=== PATIENT | female | born 1980 | race Caucasian/White ===

== ENCOUNTER 2025-06-21 16:15 | Inpatient (IN) | payer OTHER ==
[2025-06-21] MEDS ORDERED: ACETAMINOPHEN 325 MG TABLET (FP) PO PRN (17:17)
[2025-06-21] MEDS ORDERED: CEFEPIME HCL 2 GM VIAL (RESTRICTED TO ID) IVPB SCH (17:30)
[2025-06-21 17:51] LABS: COCAINE, UR NEGATIVE (NEGATIVE); PHENCYCLIDINE,URINE NEGATIVE (NEGATIVE)
[2025-06-21 17:52] LABS: METHADONE, UR NEGATIVE (NEGATIVE); OPIATES, URI NEGATIVE (NEGATIVE); URINE AMPHETAMINES NEGATIVE (NEGATIVE); URINE BENZODIAZEPINES POSITIVE (NEGATIVE)
[2025-06-21] MEDS ORDERED: THIAMINE HCL 200 MG/2 ML VIAL ONE (18:11)
[2025-06-21] MEDS ORDERED: CEFEPIME HCL/D5W 2 GM/50 ML BAG IVPB ONE (18:11)
[2025-06-21] MEDS ORDERED: FOLIC ACID 1 MG TABLET (FP) ONE (18:11)
[2025-06-21] MEDS: THIAMINE HCL 200 MG/2 ML VIAL IVPB SCH (18:44)
[2025-06-21] MEDS: FOLIC ACID 1 MG TABLET (FP) PO ONE (18:44)
[2025-06-21] MEDS: CEFEPIME 2 GM in DEXTROSE 5%-WATER 100 ML IVPB SCH (18:44)
[2025-06-21 18:53] LABS: URINE BARBITURATES NEGATIVE (NEGATIVE)
[2025-06-21] MEDS: LORazepam 2 MG/ML SDV VIAL IVPUSH PRN (21:57)
[2025-06-21 22:11] VITALS: BMI 17.2
[2025-06-22 07:47] LABS: MCHC 32.3 g/dl (32.2-35.5); MEAN CELL VOLUME 102.8 fl (79.4-94.8); MEAN PLT VOLUME 11.8 fl (9.4-12.3); RDW 14.5 % (12.2-17.1)
[2025-06-22 08:08] LABS: GLUCOSE,RANDOM 89.0 mg/dL (74-106)
[2025-06-22 08:09] LABS: TOT PROT 7.8 g/dl (6.4-8.2)
[2025-06-22 08:10] LABS: CO2 25.0 mmol/L (21-32)
[2025-06-22 08:12] LABS: ALK PHOS 126.0 U/L (40-150)
[2025-06-22 08:14] LABS: CREATININE 0.58 mg/dL (0.55-1.3); SGOT/AST 45.0 U/L (5-34); SGPT/ALT 19.0 U/L (0-55)
[2025-06-22] MEDS: NICOTINE 21 MG/24 HOURS TOPICAL PATCH TD SCH (09:18)
[2025-06-22 10:40] LABS: ARTERIAL BLD GAS O2 SATURATION 89.6 % (95-98); ARTERIAL BLOOD GAS BASE EXCESS 1.5 mmol/L (-2-2); ARTERIAL BLOOD GAS PCO2 44.50 mmHg (35-45); ARTERIAL BLOOD GAS PO2 57.2 mmHg (80-100)
[2025-06-22 10:44] LABS: ALLENS TEST POSITIVE
[2025-06-22] MEDS: NALOXONE HCL 0.4 MG/ML VIAL IVPUSH PRN (12:19)
[2025-06-22 14:02] LABS: COCAINE, UR NEGATIVE (NEGATIVE); OPIATES, URI NEGATIVE (NEGATIVE); PHENCYCLIDINE,URINE NEGATIVE (NEGATIVE); URINE AMPHETAMINES NEGATIVE (NEGATIVE)
[2025-06-22 14:03] LABS: METHADONE, UR POSITIVE (NEGATIVE); URINE BARBITURATES NEGATIVE (NEGATIVE); URINE BENZODIAZEPINES POSITIVE (NEGATIVE)
[2025-06-22] MEDS ORDERED: MAGNESIUM 2GM/50ML STERILE WATER IVPB IVPB ONE (15:00)
[2025-06-22] MEDS: ACETAMINOPHEN 1000 MG/100 ML BAG IVPB ONE (16:28)
[2025-06-22] MEDS ORDERED: [UNRECOGNIZED DRUG - OTHER] IVPB SCH (18:00)
[2025-06-22] MEDS ORDERED: VANCOMYCIN IVPB SCH (18:00)
[2025-06-22] MEDS: LORazepam 2 MG/ML SDV VIAL IVPUSH ONE (18:10)
[2025-06-22] MEDS: MAGNESIUM 2GM/50ML STERILE WATER IVPB IVPB ONE (18:14)
[2025-06-22] MEDS: LACTATED RINGERS SOLUTION 1,000 ML/1,000 ML INFUS.BAG IV STA ×2 (18:15→18:29)
[2025-06-22] MEDS: MEROPENEM 1 GM in DEXTROSE 5%-WATER 100 ML IVPB SCH (19:37)
[2025-06-22] MEDS: VANCOMYCIN/WATER FOR INJ (PEG) 1,000 MG/200 ML BAG IVPB SCH (19:37)
[2025-06-22 19:44] LABS: ABSOLUTE IMMATURE GRANULOCYTES 0.01 x10^3/uL (0.0-0.031); MEAN CELL VOLUME 106.8 fl (79.4-94.8)
[2025-06-22 19:46] LABS: BASOPHILS # 0.01 x10^3/uL (0.01-0.08); EOSINOPHIL % 5.8 % (0.7-5.8); EOSINOPHILS # 0.21 x10^3/uL (0.04-0.36); IMMATURE PLATELET FRACTION # 1.80 x10^3/uL; MCHC 31.9 g/dl (32.2-35.5); MEAN PLT VOLUME 11.6 fl (9.4-12.3); MONOCYTE # 0.28 x10^3/uL (0.24-0.86); MONOCYTE % 7.8 % (4.7-12.5); RDW 14.7 % (12.2-17.1)
[2025-06-22 19:56] LABS: GLUCOSE,RANDOM 71.0 mg/dL (74-106)
[2025-06-22 19:57] LABS: TOT PROT 6.8 g/dl (6.4-8.2)
[2025-06-22 19:58] LABS: CO2 25.0 mmol/L (21-32)
[2025-06-22 19:59] LABS: ALK PHOS 108.0 U/L (40-150)
[2025-06-22 20:02] LABS: CREATININE 0.72 mg/dL (0.55-1.3); SGOT/AST 43.0 U/L (5-34); SGPT/ALT 14.0 U/L (0-55)
[2025-06-22] MEDS: ACYCLOVIR INJECTION 500 MG in DEXTROSE 5%-WATER - 100 ML IVPB SCH (20:10)
[2025-06-22] MEDS: BICTEGRAV/EMTRICIT/TENOFOV (BIKTARVY) 50-200-25 MG TABLET PO SCH (20:54)
[2025-06-22] MEDS: THIAMINE HCL 200 MG/2 ML VIAL IVPB SCH (21:15)
[2025-06-23] MEDS ORDERED: ACETAMINOPHEN 1000 MG/100 ML BAG IVPB PRN (03:20)
[2025-06-23] MEDS: ACETAMINOPHEN 1000 MG/100 ML BAG IVPB PRN (03:54)
[2025-06-23] MEDS: HALOPERIDOL LACTATE 5 MG/ML IM ONE ×2 (06:49→06:56)
[2025-06-23] MEDS: SODIUM CHLORIDE 1,000 ML IV STA (08:23)
[2025-06-23 08:27] LABS: MCHC 32.1 g/dl (32.2-35.5); MEAN CELL VOLUME 104.7 fl (79.4-94.8); MEAN PLT VOLUME 12.4 fl (9.4-12.3); RDW 14.6 % (12.2-17.1)
[2025-06-23 09:54] LABS: GLUCOSE,RANDOM 67.0 mg/dL (74-106); TOT PROT 7.4 g/dl (6.4-8.2)
[2025-06-23 09:55] LABS: CO2 23.0 mmol/L (21-32)
[2025-06-23 09:57] LABS: ALK PHOS 110.0 U/L (40-150)
[2025-06-23 10:00] LABS: CREATININE 0.71 mg/dL (0.55-1.3); SGOT/AST 56.0 U/L (5-34); SGPT/ALT 15.0 U/L (0-55)
[2025-06-23] MEDS: ATOVAQUONE 750 MG/5 ML (UNIT-DOSE PACKAGING) PO SCH (10:51)
[2025-06-23] MEDS: LORazepam 2 MG/ML SDV VIAL IM ONE (11:31)
[2025-06-23] MEDS: DEXTROSE 5%-LACTATED RINGERS 1,000 ML IV SCH (12:43)
[2025-06-23 21:13] LABS: EPI CELLS 6 /uL (0-25.1); HYALINE CASTS 2 /uL (0-3.1); URINE APPEARANCE CLEAR; URINE BACTERIA 67 /uL (0-1359); URINE BILIRUBIN NEGATIVE (NEGATIVE); URINE COLOR YELLOW; URINE GLUCOSE (UA) NEGATIVE (NEGATIVE); URINE KETONE TRACE (NEGATIVE); URINE LEUK ESTERASE 1+ (NEGATIVE); URINE NITRITE NEGATIVE (NEGATIVE); URINE PROTEIN 1+ (NEGATIVE); URINE RBC 21 /uL (0-23.9); URINE UROBILINOGEN 0.2 mg/dL (0.2-1.0)
[2025-06-24 09:24] LABS: EPI CELLS 20 /uL (0-25.1); HYALINE CASTS 0 /uL (0-3.1); URINE APPEARANCE CLEAR; URINE BACTERIA 74 /uL (0-1359); URINE BILIRUBIN NEGATIVE (NEGATIVE); URINE COLOR YELLOW; URINE GLUCOSE (UA) NEGATIVE (NEGATIVE); URINE KETONE NEGATIVE (NEGATIVE); URINE LEUK ESTERASE 2+ (NEGATIVE); URINE NITRITE NEGATIVE (NEGATIVE); URINE PROTEIN TRACE (NEGATIVE); URINE RBC 23 /uL (0-23.9); URINE UROBILINOGEN 0.2 mg/dL (0.2-1.0); URINE WBC 106 /uL (0-25.8)
[2025-06-24 11:07] LABS: YEAST MODERATE (NEGATIVE)
[2025-06-24 12:56] LABS: MCHC 32.0 g/dl (32.2-35.5); MEAN CELL VOLUME 103.4 fl (79.4-94.8); MEAN PLT VOLUME 13.0 fl (9.4-12.3); RDW 14.4 % (12.2-17.1)
[2025-06-24 13:13] LABS: GLUCOSE,RANDOM 91.0 mg/dL (74-106)
[2025-06-24 13:14] LABS: TOT PROT 7.9 g/dl (6.4-8.2)
[2025-06-24 13:15] LABS: CO2 26.0 mmol/L (21-32)
[2025-06-24 13:17] LABS: ALK PHOS 139.0 U/L (40-150)
[2025-06-24 13:19] LABS: CREATININE 0.72 mg/dL (0.55-1.3); SGOT/AST 58.0 U/L (5-34); SGPT/ALT 19.0 U/L (0-55)
[2025-06-24] MEDS: MEROPENEM 1 GM in DEXTROSE 5%-WATER 100 ML IVPB SCH (21:18)
[2025-06-25] MEDS: MAGNESIUM 2GM/50ML STERILE WATER IVPB IVPB ONE ×2 (00:37→00:39)
[2025-06-25 08:02] LABS: MCHC 32.2 g/dl (32.2-35.5); MEAN CELL VOLUME 102.6 fl (79.4-94.8); MEAN PLT VOLUME 12.4 fl (9.4-12.3); RDW 14.2 % (12.2-17.1)
[2025-06-25 08:53] LABS: GLUCOSE,RANDOM 81.0 mg/dL (74-106); TOT PROT 6.7 g/dl (6.4-8.2)
[2025-06-25 08:54] LABS: CO2 25.0 mmol/L (21-32)
[2025-06-25 08:56] LABS: ALK PHOS 179.0 U/L (40-150)
[2025-06-25 08:57] LABS: LDH 158.0 U/L (84-246)
[2025-06-25 08:59] LABS: CREATININE 0.64 mg/dL (0.55-1.3); SGOT/AST 47.0 U/L (5-34); SGPT/ALT 16.0 U/L (0-55)
[2025-06-25 10:34] LABS: IRON SERUM 68.0 ug/dL (50-175)
[2025-06-25] MEDS: ALBUTEROL SO4 2.5/IPRATROPIUM 0.5 INH SOL 3 ML VIAL.NEB. NEB SCH (20:43)
[2025-06-26 08:24] LABS: MCHC 32.2 g/dl (32.2-35.5); MEAN CELL VOLUME 103.9 fl (79.4-94.8); MEAN PLT VOLUME 12.1 fl (9.4-12.3); RDW 14.5 % (12.2-17.1)
[2025-06-26 08:58] LABS: GLUCOSE,RANDOM 98.0 mg/dL (74-106); TOT PROT 7.2 g/dl (6.4-8.2)
[2025-06-26 08:59] LABS: CO2 20.0 mmol/L (21-32)
[2025-06-26 09:01] LABS: ALK PHOS 198.0 U/L (40-150)
[2025-06-26 09:03] LABS: SGOT/AST 49.0 U/L (5-34); SGPT/ALT 18.0 U/L (0-55)
[2025-06-26 09:04] LABS: CREATININE 0.61 mg/dL (0.55-1.3)
[2025-06-26] MEDS: THIAMINE HCL 200 MG/2 ML VIAL IVPB SCH (09:32)
[2025-06-26] MEDS: MAGNESIUM 2GM/50ML STERILE WATER IVPB IVPB ONE (11:49)
[2025-06-27 07:32] LABS: IMMATURE PLATELET FRACTION # 1.90 x10^3/uL; MCHC 32.3 g/dl (32.2-35.5); MEAN CELL VOLUME 102.8 fl (79.4-94.8); MEAN PLT VOLUME 12.1 fl (9.4-12.3); RDW 14.6 % (12.2-17.1)
[2025-06-27 08:08] LABS: GLUCOSE,RANDOM 89.0 mg/dL (74-106); TOT PROT 6.8 g/dl (6.4-8.2)
[2025-06-27 08:09] LABS: CO2 24.0 mmol/L (21-32)
[2025-06-27 08:11] LABS: ALK PHOS 261.0 U/L (40-150)
[2025-06-27 08:14] LABS: CREATININE 0.62 mg/dL (0.55-1.3); SGOT/AST 61.0 U/L (5-34); SGPT/ALT 22.0 U/L (0-55)
[2025-06-27] MEDS: FOLIC ACID 1 MG TABLET (FP) PO SCH (09:24)
[2025-06-27] MEDS: MULTIVITAMINS (DAILY MVI) TABLET (FP) PO SCH (09:24)
[2025-06-27] MEDS: DEXTROSE 5%-LACTATED RINGERS 1,000 ML IV SCH (09:28)
[2025-06-27] MEDS: MAGNESIUM SULF 50% (8.12 MEQ/2 ML-1 GM VIAL) IVPB ONE (10:13)
[2025-06-28] MEDS ORDERED: CLOBETASOL PROPIONATE 15 GM OINTMENT TP SCH (02:45)
[2025-06-28] MEDS: LORATADINE 10 MG TABLET PO ONE (03:06)
[2025-06-28 08:10] LABS: IMMATURE PLATELET FRACTION # 1.80 x10^3/uL; MCHC 31.9 g/dl (32.2-35.5); MEAN CELL VOLUME 103.2 fl (79.4-94.8); MEAN PLT VOLUME 13.2 fl (9.4-12.3); RDW 14.6 % (12.2-17.1)
[2025-06-28] MEDS: CLOBETASOL PROPIONATE 15 GM CREAM TP SCH (08:14)
[2025-06-28 08:26] LABS: GLUCOSE,RANDOM 99.0 mg/dL (74-106)
[2025-06-28 08:27] LABS: TOT PROT 7.2 g/dl (6.4-8.2)
[2025-06-28 08:28] LABS: CO2 25.0 mmol/L (21-32)
[2025-06-28 08:29] LABS: ALK PHOS 286.0 U/L (40-150)
[2025-06-28 08:32] LABS: SGOT/AST 61.0 U/L (5-34); SGPT/ALT 29.0 U/L (0-55)
[2025-06-28 08:33] LABS: CREATININE 0.56 mg/dL (0.55-1.3)
[2025-06-28] MEDS: MAGNESIUM 2GM/50ML STERILE WATER IVPB IVPB ONE (16:18)
[2025-06-28] MEDS: MEROPENEM 1 GM in DEXTROSE 5%-WATER 100 ML IVPB SCH (19:47)
[2025-06-28] MEDS: VANCOMYCIN 1,000 MG in DEXTROSE 5%-WATER - 250 ML IVPB SCH (19:48)
[2025-06-28] MEDS: HALOPERIDOL LACTATE 5 MG/ML IM ONE (19:48)
[2025-06-29] MEDS: LEVOTHYROXINE NA 25 MCG TABLET (FP) PO SCH (06:12)
[2025-06-29 08:14] LABS: MCHC 31.8 g/dl (32.2-35.5); MEAN CELL VOLUME 104.3 fl (79.4-94.8); MEAN PLT VOLUME 12.6 fl (9.4-12.3); RDW 14.9 % (12.2-17.1)
[2025-06-29 08:58] LABS: GLUCOSE,RANDOM 99.0 mg/dL (74-106); TOT PROT 7.9 g/dl (6.4-8.2)
[2025-06-29 08:59] LABS: CO2 20.0 mmol/L (21-32)
[2025-06-29 09:01] LABS: ALK PHOS 275.0 U/L (40-150)
[2025-06-29 09:04] LABS: CREATININE 0.52 mg/dL (0.55-1.3); SGOT/AST 62.0 U/L (5-34); SGPT/ALT 26.0 U/L (0-55)
[2025-06-29] MEDS: valACYclovir HCL 500 MG TABLET (FP) PO SCH (13:35)
[2025-06-29] MEDS: ONDANSETRON 4 MG/2 ML VIAL IVPUSH PRN (13:38)
[2025-06-29] MEDS: morphine CARPU-JECT 2 MG/1 ML DISP.SYRIN IVPUSH ONE (19:48)
[2025-06-29] MEDS: CARVEDILOL 3.125 MG TABLET (FP) PO SCH (22:16)
[2025-06-30 07:28] LABS: MCHC 32.9 g/dl (32.2-35.5); MEAN CELL VOLUME 104.5 fl (79.4-94.8); MEAN PLT VOLUME 11.4 fl (9.4-12.3); RDW 14.8 % (12.2-17.1)
[2025-06-30 08:29] LABS: GLUCOSE,RANDOM 73.0 mg/dL (74-106); TOT PROT 7.9 g/dl (6.4-8.2)
[2025-06-30 08:30] LABS: CO2 25.0 mmol/L (21-32)
[2025-06-30 08:32] LABS: ALK PHOS 284.0 U/L (40-150)
[2025-06-30 08:34] LABS: SGOT/AST 66.0 U/L (5-34); SGPT/ALT 27.0 U/L (0-55)
[2025-06-30 08:35] LABS: CREATININE 0.56 mg/dL (0.55-1.3)
[2025-06-30] MEDS ORDERED: valACYclovir HCL 500 MG TABLET (FP) PO SCH (08:45)
[2025-06-30] MEDS: MAGNESIUM SULF 50% (8.12 MEQ/2 ML-1 GM VIAL) IVPB ONE (18:27)
[2025-06-30] MEDS: SODIUM CHLORIDE 1,000 ML IV SCH (18:31)
[2025-06-30 19:33] LABS: GLUCOSE,RANDOM 86.0 mg/dL (74-106)
[2025-06-30 19:34] LABS: CO2 20.0 mmol/L (21-32)
[2025-06-30 19:39] LABS: CREATININE 0.5 mg/dL (0.55-1.3)
[2025-07-01 09:03] LABS: MCHC 32.5 g/dl (32.2-35.5); MEAN CELL VOLUME 103.1 fl (79.4-94.8); MEAN PLT VOLUME 12.5 fl (9.4-12.3); RDW 14.6 % (12.2-17.1)
[2025-07-01 09:37] LABS: GLUCOSE,RANDOM 83.0 mg/dL (74-106); TOT PROT 8.7 g/dl (6.4-8.2)
[2025-07-01 09:38] LABS: CO2 25.0 mmol/L (21-32)
[2025-07-01 09:40] LABS: ALK PHOS 291.0 U/L (40-150)
[2025-07-01 09:42] LABS: SGOT/AST 77.0 U/L (5-34); SGPT/ALT 32.0 U/L (0-55)
[2025-07-01 09:43] LABS: CREATININE 0.5 mg/dL (0.55-1.3)
[2025-07-01] MEDS: BICTEGRAV/EMTRICIT/TENOFOV (BIKTARVY) 50-200-25 MG TABLET PO SCH (10:00)
[2025-07-01] MEDS: FUROSEMIDE 20 MG TABLET (FP) PO ONE (16:45)
[2025-07-02 09:10] LABS: MCHC 31.7 g/dl (32.2-35.5); MEAN CELL VOLUME 104.3 fl (79.4-94.8); MEAN PLT VOLUME 12.7 fl (9.4-12.3); RDW 14.7 % (12.2-17.1)
[2025-07-02] MEDS: SODIUM CHLORIDE 1 GM TABLET PO SCH (09:24)
[2025-07-02 10:20] LABS: GLUCOSE,RANDOM 91.0 mg/dL (74-106)
[2025-07-02 10:21] LABS: TOT PROT 9.1 g/dl (6.4-8.2)
[2025-07-02 10:22] LABS: CO2 21.0 mmol/L (21-32)
[2025-07-02 10:23] LABS: ALK PHOS 283.0 U/L (40-150)
[2025-07-02 10:26] LABS: CREATININE 0.61 mg/dL (0.55-1.3); SGOT/AST 82.0 U/L (5-34); SGPT/ALT 31.0 U/L (0-55)
[2025-07-02] MEDS: FUROSEMIDE 20 MG TABLET (FP) PO ONE (12:23)
[2025-07-02] MEDS: MAGNESIUM 2GM/50ML STERILE WATER IVPB IVPB ONE (17:14)
[2025-07-02 17:47] LABS: URINE APPEARANCE CLEAR; URINE BILIRUBIN NEGATIVE (NEGATIVE); URINE COLOR YELLOW; URINE GLUCOSE (UA) NEGATIVE (NEGATIVE); URINE KETONE NEGATIVE (NEGATIVE); URINE LEUK ESTERASE NEGATIVE (NEGATIVE); URINE NITRITE NEGATIVE (NEGATIVE); URINE PROTEIN TRACE (NEGATIVE); URINE UROBILINOGEN 0.2 mg/dL (0.2-1.0)
[2025-07-02] MEDS: NICOTINE 21 MG/24 HOURS TOPICAL PATCH TD ONE (18:20)
[2025-07-02] MEDS: diphenhydrAMINE HCL 25 MG CAPSULE (FP) PO ONE (23:00)
[2025-07-03 08:36] LABS: GLUCOSE,RANDOM 106.0 mg/dL (74-106)
[2025-07-03 08:37] LABS: TOT PROT 8.8 g/dl (6.4-8.2)
[2025-07-03 08:39] LABS: ALK PHOS 236.0 U/L (40-150)
[2025-07-03 08:42] LABS: CREATININE 0.53 mg/dL (0.55-1.3); SGOT/AST 69.0 U/L (5-34); SGPT/ALT 26.0 U/L (0-55)
[2025-07-03 08:51] LABS: CO2 20.0 mmol/L (21-32)
[2025-07-03] MEDS: FUROSEMIDE 40 MG TABLET (FP) PO ONE (15:36)
[2025-07-04 08:55] LABS: MCHC 32.5 g/dl (32.2-35.5); MEAN CELL VOLUME 104.3 fl (79.4-94.8); MEAN PLT VOLUME 12.6 fl (9.4-12.3); RDW 14.6 % (12.2-17.1)
[2025-07-04 09:53] LABS: GLUCOSE,RANDOM 97.0 mg/dL (74-106); TOT PROT 9.9 g/dl (6.4-8.2)
[2025-07-04 09:54] LABS: CO2 25.0 mmol/L (21-32)
[2025-07-04 09:56] LABS: ALK PHOS 254.0 U/L (40-150)
[2025-07-04 09:59] LABS: CREATININE 0.53 mg/dL (0.55-1.3)
[2025-07-04] MEDS: FUROSEMIDE 40 MG TABLET (FP) PO SCH (10:16)
[2025-07-04 10:28] LABS: SGOT/AST 67.0 U/L (5-34); SGPT/ALT 29.0 U/L (0-55)
[2025-07-04] MEDS: MAGNESIUM 2GM/50ML STERILE WATER IVPB IVPB ONE ×2 (11:25→12:21)
[2025-07-04] MEDS: MAGNESIUM OXIDE 400 MG TABLET (FP) PO ONE (12:21)
[2025-07-05 11:04] LABS: ABSOLUTE IMMATURE GRANULOCYTES 0.01 x10^3/uL (0.0-0.031); BASOPHILS # 0.02 x10^3/uL (0.01-0.08); EOSINOPHIL % 12.6 % (0.7-5.8); EOSINOPHILS # 0.65 x10^3/uL (0.04-0.36); MCHC 33.1 g/dl (32.2-35.5); MEAN CELL VOLUME 102.3 fl (79.4-94.8); MEAN PLT VOLUME 12.5 fl (9.4-12.3); MONOCYTE # 0.52 x10^3/uL (0.24-0.86); MONOCYTE % 10.1 % (4.7-12.5); RDW 14.6 % (12.2-17.1)
[2025-07-05 11:24] LABS: GLUCOSE,RANDOM 122.0 mg/dL (74-106)
[2025-07-05 11:25] LABS: CO2 19.0 mmol/L (21-32); TOT PROT 10.2 g/dl (6.4-8.2)
[2025-07-05 11:27] LABS: ALK PHOS 229.0 U/L (40-150)
[2025-07-05 11:30] LABS: CREATININE 0.53 mg/dL (0.55-1.3); SGOT/AST 55.0 U/L (5-34); SGPT/ALT 26.0 U/L (0-55)
[2025-07-07 04:52] VITALS: BP 122/89; PULSE 103; RESP 17; TEMP 97.9
== END 2025-07-07 11:26 | disposition other institution (70) | DRG 890 ==
LOC: JER 16:15 → JERBED 17:37 → J5S 21:39 → J6S 23:38
PROVIDERS: ADMIT Student in an Organized Health Care Education/Training Program; ATTEND Internal Medicine
DX: A41.9 Sepsis, unspecified organism (principal); E43 Unspecified severe protein-calorie malnutrition; G93.49 Other encephalopathy; J18.9 Pneumonia, unspecified organism; E87.1 Hypo-osmolality and hyponatremia; E83.42 Hypomagnesemia; I50.22 Chronic systolic (congestive) heart failure; R64 Cachexia; F14.20 Cocaine dependence, uncomplicated; Z86.74 Personal history of sudden cardiac arrest; D53.9 Nutritional anemia, unspecified; E03.9 Hypothyroidism, unspecified; F19.20 Other psychoactive substance dependence, uncomplicated; A59.01 Trichomonal vulvovaginitis; F17.200 Nicotine dependence, unspecified, uncomplicated; Z68.1 Body mass index [BMI] 19.9 or less, adult; F10.230 Alcohol dependence with withdrawal, uncomplicated; B20 Human immunodeficiency virus [HIV] disease
CPT/HCPCS: 36415; 36430; 36600; 70450-TC; 70460-TC; 70544-TC; 71045-TC-FY; 71250-TC; 80048; 80053; 80076; 80307; 81003; 82140; 82533; 82607; 82728; 82746; 82803; 82962; 83540; 83550; 83615; 83735; 83930; 83935; 84100; 84300; 84439; 84443; 84484; 84703; 85025; 85027; 85610; 85651; 86140; 86780; 86850; 86900; 86901; 87040; 87081; 87086; 87491; 87529; 87591; 87637-QW; 87661; 88300-TC; 93005; 93010; 93306-TC; 93971-TC-LT; 94640; 97116-GP; 97162-GP; 99285-25; P9037; Q9967

== ENCOUNTER 2025-07-07 11:29 | Inpatient (IN) | payer OTHER ==
[2025-07-07 12:10] VITALS: BMI 16.8
[2025-07-07] MEDS ORDERED: guaiFENesin 600 MG TABLET.ER (FP) PO PRN (12:21)
[2025-07-07] MEDS ORDERED: POLYETHYLENE GLYCOL (HEALTHYLAX) 3350 17 GM PACKET PO PRN (12:21)
[2025-07-07] MEDS ORDERED: BENZONATATE 200 MG CAPSULE PO PRN (12:21)
[2025-07-07] MEDS ORDERED: NALOXONE (NARCAN) HCL 4 MG/0.1 ML SPRAY NS PRN (12:21)
[2025-07-07] MEDS ORDERED: IBUPROFEN 400 MG TABLET (FP) PO PRN (12:21)
[2025-07-07] MEDS ORDERED: MAG HYDROX/AL HYDROX/SIMETH 30 ML UNIT-DOSE CUP PO PRN (12:21)
[2025-07-07] MEDS ORDERED: MAGNESIUM HYDROX 2400MG/30ML ORAL SUSPENSION 30 ML CUP PO PRN (12:21)
[2025-07-07] MEDS ORDERED: valACYclovir HCL 500 MG TABLET (FP) PO SCH (14:00)
[2025-07-07] MEDS: ACETAMINOPHEN 325 MG TABLET (FP) PO PRN (22:14)
[2025-07-07] MEDS: hydrOXYzine PAMOATE 25 MG CAPSULE (FP) PO PRN (22:14)
[2025-07-07] MEDS: THIAMINE 100 MG TABLET PO SCH (22:14)
[2025-07-07] MEDS: MELATONIN 5 MG TABLETS PO SCH (22:14)
[2025-07-07 23:56] LABS: EPI CELLS 26 /uL (0-25.1); HYALINE CASTS 2 /uL (0-3.1); URINE APPEARANCE CLEAR; URINE BACTERIA 29 /uL (0-1359); URINE BILIRUBIN NEGATIVE (NEGATIVE); URINE COLOR DK YELLOW; URINE GLUCOSE (UA) NEGATIVE (NEGATIVE); URINE KETONE TRACE (NEGATIVE); URINE LEUK ESTERASE 1+ (NEGATIVE); URINE NITRITE NEGATIVE (NEGATIVE); URINE PROTEIN TRACE (NEGATIVE); URINE RBC 22 /uL (0-23.9); URINE UROBILINOGEN 0.2 mg/dL (0.2-1.0); URINE WBC 77 /uL (0-25.8)
[2025-07-08] MEDS: LEVOTHYROXINE NA 25 MCG TABLET (FP) PO SCH (06:31)
[2025-07-08] MEDS: BICTEGRAV/EMTRICIT/TENOFOV (BIKTARVY) 50-200-25 MG TABLET PO SCH (07:12)
[2025-07-08] MEDS: ATOVAQUONE 750 MG/5 ML (UNIT-DOSE PACKAGING) PO SCH (08:55)
[2025-07-08] MEDS: PRENATAL VITAMINS W/ FOLIC ACID TABLET (FP) PO SCH (10:31)
[2025-07-08] MEDS: NICOTINE 21 MG/24 HOURS TOPICAL PATCH TD SCH (10:31)
[2025-07-08 10:41] LABS: MEAN PLT VOLUME 13.2 fl (9.4-12.3)
[2025-07-08 10:42] LABS: IMMATURE PLATELET FRACTION # 9.30 x10^3/uL; MCHC 33.3 g/dl (32.2-35.5); MEAN CELL VOLUME 104.6 fl (79.4-94.8); RDW 14.8 % (12.2-17.1)
[2025-07-08 11:05] LABS: GLUCOSE,RANDOM 106.0 mg/dL (74-106); TOT PROT 10.0 g/dl (6.4-8.2)
[2025-07-08 11:06] LABS: CO2 26.0 mmol/L (21-32)
[2025-07-08 11:08] LABS: ALK PHOS 190.0 U/L (40-150)
[2025-07-08 11:11] LABS: CREATININE 0.51 mg/dL (0.55-1.3); SGOT/AST 42.0 U/L (5-34); SGPT/ALT 21.0 U/L (0-55)
[2025-07-08 11:16] LABS: SYPHILIS W/ RPR CONF NON-REACTIVE (NONREACTIVE)
[2025-07-08 15:17] LABS: HCV DIAGNOSTIC IN-HOUSE W/RFLX REACTIVE (NONREACTIVE)
[2025-07-08] MEDS: IBUPROFEN 600 MG TABLET (FP) PO PRN (21:55)
[2025-07-09] MEDS: LOPERAMIDE HCL 2 MG CAPSULE PO PRN (12:24)
[2025-07-09] MEDS: BENZOCAINE/MENTHOL (CHLORASEPTIC ) LOZENGE MM PRN (20:09)
[2025-07-10] MEDS: FERROUS SO4 325 MG TABLET (FP) PO SCH (12:39)
[2025-07-11] MEDS: AMOX TR/POT CLAV 500MG/125MG TABLETS (FP) PO SCH (17:40)
[2025-07-12 10:38] LABS: MCHC 32.3 g/dl (32.2-35.5); MEAN CELL VOLUME 107.3 fl (79.4-94.8); MEAN PLT VOLUME 12.2 fl (9.4-12.3); RDW 16.5 % (12.2-17.1)
[2025-07-12 11:00] LABS: GLUCOSE,RANDOM 80.0 mg/dL (74-106)
[2025-07-12 11:01] LABS: TOT PROT 9.4 g/dl (6.4-8.2)
[2025-07-12 11:02] LABS: CO2 23.0 mmol/L (21-32)
[2025-07-12 11:03] LABS: ALK PHOS 143.0 U/L (40-150)
[2025-07-12 11:06] LABS: SGOT/AST 39.0 U/L (5-34); SGPT/ALT 17.0 U/L (0-55)
[2025-07-12 11:07] LABS: CREATININE 0.5 mg/dL (0.55-1.3)
[2025-07-14] MEDS: SODIUM CHLORIDE 1 GM TABLET PO SCH (11:16)
[2025-07-15 06:58] VITALS: RESP 16
[2025-07-16 06:55] VITALS: TEMP 97.9
[2025-07-16 10:11] VITALS: BP 117/82; PULSE 103
[2025-07-16] MEDS ORDERED: AMOX TR/POT CLAV 500MG/125MG TABLETS (FP) PO SCH (17:30)
[2025-07-16] MEDS ORDERED: SODIUM CHLORIDE 1 GM TABLET PO SCH (22:00)
[2025-07-17] MEDS ORDERED: ATOVAQUONE 750 MG/5 ML (UNIT-DOSE PACKAGING) PO SCH (07:00)
[2025-07-17] MEDS ORDERED: BICTEGRAV/EMTRICIT/TENOFOV (BIKTARVY) 50-200-25 MG TABLET PO SCH (07:00)
== END 2025-07-16 15:54 | disposition left against medical advice (07) | DRG 770 ==
LOC: YASAS 11:29 → Y3NR 15:22 → Y5N 07-10 12:43
PROVIDERS: ADMIT Family Medicine; ATTEND Psychiatry & Neurology Pain Medicine
PROC: HZ42ZZZ Group Counseling for Substance Abuse Treatment, Cognitive-Behavioral (ICD-10-PCS; principal; 2025-07-07)
DX: F10.20 Alcohol dependence, uncomplicated (principal); F14.20 Cocaine dependence, uncomplicated; F17.210 Nicotine dependence, cigarettes, uncomplicated; F41.9 Anxiety disorder, unspecified; F32.A Depression, unspecified; B20 Human immunodeficiency virus [HIV] disease; E87.1 Hypo-osmolality and hyponatremia; H66.92 Otitis media, unspecified, left ear; Z79.899 Other long term (current) drug therapy; Z87.01 Personal history of pneumonia (recurrent); I25.2 Old myocardial infarction; Z86.74 Personal history of sudden cardiac arrest
CPT/HCPCS: 36415; 80053; 80307; 81003; 85025; 85027; 86780; 86803; 87522; 93005; 93010